=== PATIENT | female | born 2000 | race Two or more races ===

== ENCOUNTER 2025-05-11 10:13 | Emergency (ER) | payer SELFPAY ==
[~2025-05-11] VITALS: Ht 167.6 cm; Wt 57.0 kg
[2025-05-11 10:15] VITALS: O2SAT 100
[2025-05-11 10:16] VITALS: BP 111/69; PULSE 91; RESP 18; TEMP 36.7; O2SAT 99
[2025-05-11] MEDS: BACITRACIN ZINC OINT UDPKT TOP ONE (11:13)
[2025-05-11] MEDS: LIDOCAINE HCL/EPINEPHRINE 1%-EPI 1:100,000 20ML VIAL INFIL ONE (11:13)
[2025-05-11] MEDS ORDERED: BO1 TP (11:36)
== END 2025-05-11 11:53 | disposition home or self-care (01) ==
LOC: ER 10:13
DX: S01.01XA Laceration without foreign body of scalp, initial encounter (principal); W18.30XA Fall on same level, unspecified, initial encounter; Y93.89 Activity, other specified; Y92.89 Other specified places as the place of occurrence of the external cause; Y99.8 Other external cause status
CPT/HCPCS: 99282; 12002; J2004